=== PATIENT | female | born 1985 | race Caucasian/White ===

== ENCOUNTER 2022-02-06 12:28 | Emergency (ER) | payer BC ==
[2022-02-06] MEDS ORDERED: NAPROXEN250 MG PO (12:54)
[2022-02-06] MEDS ORDERED: TYLENOL325 M1 PO (12:54)
[2022-02-06] MEDS ORDERED: ADIPEX-P37.5 M2 PO (12:58)
== END 2022-02-06 14:04 | disposition home or self-care (01) ==
LOC: ED 12:28
DX: S86.012A Strain of left Achilles tendon, initial encounter (principal); X50.9XXA Other and unspecified overexertion or strenuous movements or postures, initial encounter; Y93.89 Activity, other specified; Y92.89 Other specified places as the place of occurrence of the external cause; Y99.8 Other external cause status

== ENCOUNTER → 2022-04-22 | Outpatient (CLI) | payer BC ==
[~2022-04-22] MED LIST: ADIPEX-P37.5 M2 PO; NAPROXEN250 MG PO; TYLENOL325 M1 PO
== END | disposition home or self-care (01) ==
LOC: US 14:30
PROVIDERS: ATTEND Orthopaedic Surgery
DX: M79.669 Pain in unspecified lower leg (principal)